=== PATIENT | female | born 1965 | race Caucasian/White ===

== ENCOUNTER 2020-11-05 10:45 | Emergency (ER) | payer SELFPAY ==
--- NOTE | 2020-11-05 12:07 | CT ---
EXAM DESCRIPTION: Abdoment/Pelvis w/o Contrast: Computed Tomography. CLINICAL HISTORY: 55 years Female left flank pain COMPARISON: None. TECHNIQUE: Spiral-axial scans 2.5 x 2.5 mm intervals through the abdomen and pelvis without oral or IV contrast. Coronal and sagittal 2.0 mm reconstructions. Total Exam DLP: 1443 mGy-cm. This exam was performed according to our departmental CT dose-optimization program which includes automated exposure control, adjustment of the mA and/or kV according to patient size and/or use of iterative reconstruction technique; to reduce radiation dose to as low as reasonably achievable (ALARA). FINDINGS: Lung bases and pleura: Negative. Liver, stomach, spleen, and adrenal glands: Radiodense food in the dependent portion of the stomach. Craniocaudal dimension of the right lobe of the liver is borderline enlarged. No ascites. Pancreas, Gallbladder, and Ducts: Surgical clips in the gallbladder fossa with no fluid. Pancreas and duct negative. Normal surrounding fat density. Kidneys and Ureters: Unremarkable. Mesentery: No free air or free fluid. Aorta: Negative. Small Bowel: Unremarkable. Terminal Ileum/Cecum: Normal caliber, including appendix. No inflammatory findings. Colon: Minimal fecal material in the proximal half with distal half decompressed. Pelvic Organs: Uterus not seen with vaginal cuff unremarkable. Possible calcification small right ovary. Left ovary not enlarged. No fluid in the cul-de-sac. Spine and Bony Pelvis: Minimal spondylosis lower thoracic spine. Also L5-S1 disc space. Hypertrophic changes of the superior lateral right acetabulum with over coverage of the right femoral neck and lateral cortical bump subcapital femoral neck. Abdominal Wall/Back Soft Tissues: Small bilateral fatty inguinal hernias not containing bowel. IMPRESSION: 1. No organomegaly, no inflammatory process, no free air or free fluid. Prior cholecystectomy. 2. The appendix is negative. Spondylosis thoracic and lumbar spine. Right acetabular hypertrophy with the subcapital region of the right femoral head and neck and right lateral subcortical femoral neck bump. These findings are associated with femoral acetabular impingement. 3. Small bilateral fatty inguinal hernias not containing bowel. Electronically signed by: Jim Stevens MD 11/05/2020 12:05 PM [facility]
[2020-11-05] MEDS ORDERED: CIPROFLOXACIN 500 MG TAB PO ONE (13:31)
[2020-11-05] MEDS ORDERED: TAMSULOSIN 0.4 MG CAP PO ONE (13:32)
--- NOTE | 2020-11-05 13:37 | ED.PDOC ---
History of Present Illness - General Chief Complaint: Problem Stated Complaint: left flank pain Time Seen by Provider: 11/05/20 11:07 Source: patient Exam Limitations: no limitations - History of Present Illness Initial Comments: The patient is a 55-year-old female presented emergency room secondary to left flank and abdominal pain that started around 6 AM this morning and was very severe. At its worst it did make her vomit. She did receive morphine with EMS. She has had some dysuria as well as the need to void but feeling like she cannot. Her pain is significantly better at this point. No fever. Onset of the pain was severe and abrupt. No further vomiting. No abdominal pain to palpation. No flank pain to palpation. Timing/Duration: 4-6 hours Severity: severe Improving Factors: medication Worsening Factors: nothing Associated Symptoms: loss of appetite, malaise, nausea/vomiting Allergies/Adverse Reactions: Allergies Bupropion [From Wellbutrin] Allergy (Verified 11/05/20 10:59) Escitalopram [From Lexapro] Allergy (Verified 11/05/20 10:59) Lisinopril Allergy (Verified 11/05/20 10:59) Home Medications: Ambulatory Orders Albuterol Sulfate Nebs [Proventil Nebs] 2.5 mg INH PRN 11/05/20 Aspirin [Aspirin Adult Low Dose] 81 mg PO DAILY 11/05/20 Buspirone HCl [Buspirone Hydrochloride] 5 mg PO BID 11/05/20 Calcium Carbonate-Vitamin D [Calcium 600+D 600-200 mg-Unit] 1 tab PO DAILY 11/05/20 Cetirizine HCl [Cetirizine Hydrochloride] 10 mg PO DAILY 11/05/20 Ciprofloxacin [Cipro] 500 mg PO BID #6 tab 11/05/20 Esomeprazole Magnesium 20 mg PO DAILY 11/05/20 Losartan Potassium [Cozaar] 25 mg PO DAILY 11/05/20 Metoprolol Tartrate 50 mg PO DAILY 11/05/20 Naproxen 500 mg PO BID PRN 11/05/20 Paroxetine HCl [Paroxetine Hydrochloride] 10 mg PO DAILY 11/05/20 Tamsulosin HCl [Flomax] 0.4 mg PO DAILY #7 cap 11/05/20 Topiramate [Topiramate ER] 200 mg PO BID 11/05/20 Review of Systems - Review of Systems Constitutional: States: no symptoms reported EENTM: States: no symptoms reported Respiratory: States: no symptoms reported Cardiology: States: no symptoms reported Gastrointestinal/Abdominal: States: abdominal pain, nausea, vomiting Genitourinary: States: no symptoms reported Musculoskeletal: States: back pain Skin: States: no symptoms reported Neurological: States: no symptoms reported Endocrine: States: no symptoms reported All other Systems: No Change from Baseline Past Medical History (General) - Patient Medical History Hx Stroke: Yes Hx Asthma: Yes Hx Congestive Heart Failure: No Hx Hypertension: Yes Hx Diabetes: No Hx Gastroesophageal Reflux: Yes Surgical History: cholecystectomy, tonsillectomy, Hysterectomy - Vaccination History Hx Influenza Vaccination: No Hx Pneumococcal Vaccination: No - Social History Hx Tobacco Use: No Family Medical History - Family History Father Family History: Unknown Living Status: Unknown Physical Exam - Physical Exam General Appearance: Alert, No apparent distress Eye Exam: bilateral normal Ears, Nose, Throat: hearing grossly normal, normal pharynx Neck: full range of motion, supple Respiratory: lungs clear, normal breath sounds, no respiratory distress, no accessory muscle use Cardiovascular/Chest: normal peripheral pulses, regular rate, rhythm, no edema Peripheral Pulses: radial,right: 2+, radial,left: 2+ Gastrointestinal/Abdominal: non tender, soft Rectal Exam: deferred Back Exam: no CVA tenderness, no vertebral tenderness Extremity: non-tender, normal inspection, no pedal edema, normal capillary refill 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 I believe the patient has already passed a small kidney stone. The patient is going to be placed on Flomax for the next week to help relax the ureter. She can also take Motrin or Aleve as needed. She is going to be placed on 3 days of ciprofloxacin to prevent any infection from setting in. Her urinalysis did not definitively show any urinary tract infection however cannot be definitively ruled out at this point. She is to keep her self well-hydrated. CT scan failed to show acute pathology otherwise. She does have however hypertrophic degenerative changes of the right hip joint. I do want her to follow-up with her primary care doctor for further evaluation of this as an outpatient. ER warnings are given. marquis cooper [phone] - Results/Orders Results/Orders: CT scan of abdomen pelvis without contrast shows no evidence of acute pathology. She does have chronic hypertrophic degenerative changes of the right hip. See report for details. Laboratory Results - last 24 hr 11/05/20 11/05/20 11/05/20 11:08 11:17 11:17 WBC 5.8 RBC 4.39 Hgb 13.1 Hct 39.6 MCV 90.2 MCH 29.8 MCHC 33.1 RDW 13.0 Plt Count 231 MPV 9.0 Absolute Neuts (auto) 3.50 Absolute Lymphs (auto) 1.70 Absolute Monos (auto) 0.40 Absolute Eos (auto) 0.20 Absolute Basos (auto) 0.00 Neutrophils % 60.8 Lymphocytes % 29.1 Monocytes % 6.1 Eosinophils % 3.3 Basophils % 0.7 PT 9.7 INR < 1.00 PTT (SP) 22.5 Sodium 142 Potassium 3.4 L Chloride 112 H Carbon Dioxide 22 Anion Gap 11.4 L BUN 15 Creatinine 1.19 BUN/Creatinine Ratio 12.6 Random Glucose 134 H Serum Osmolality 285.9 Lactic Acid Calcium 8.7 Magnesium 1.8 Total Bilirubin 0.5 AST 21 ALT 23 Alkaline Phosphatase 102 Creatine Kinase 39 CK-MB (CK-2) 0.9 CK-MB (CK-2) % Not Reportable Troponin I < 0.02 B-Natriuretic Peptide 58.5 Serum Total Protein 7.2 Albumin 3.6 Globulin 3.6 H Albumin/Globulin Ratio 1.0 L Amylase 44 Lipase 31 Serum HCG, Qual Urine Color Urine Appearance Urine pH Ur Specific [place] Urine Protein Urine Glucose (UA) Urine Ketones Urine Blood Urine Nitrite Urine Bilirubin Urine Urobilinogen Ur Leukocyte Esterase Urine RBC Urine WBC Ur Epithelial Cells Urine Bacteria 11/05/20 11/05/20 11/05/20 11:17 11:17 12:40 WBC RBC Hgb Hct MCV MCH MCHC RDW Plt Count MPV Absolute Neuts (auto) Absolute Lymphs (auto) Absolute Monos (auto) Absolute Eos (auto) Absolute Basos (auto) Neutrophils % Lymphocytes % Monocytes % Eosinophils % Basophils % PT INR PTT (SP) Sodium Potassium Chloride Carbon Dioxide Anion Gap BUN Creatinine BUN/Creatinine Ratio Random Glucose Serum Osmolality Lactic Acid 1.5 Calcium Magnesium Total Bilirubin AST ALT Alkaline Phosphatase Creatine Kinase CK-MB (CK-2) CK-MB (CK-2) % Troponin I B-Natriuretic Peptide Serum Total Protein Albumin Globulin Albumin/Globulin Ratio Amylase Lipase Serum HCG, Qual Negative Urine Color Yellow Urine Appearance Clear Urine pH 5.5 Ur Specific [place] 1.025 Urine Protein Negative Urine Glucose (UA) Negative Urine Ketones Negative Urine Blood Moderate H Urine Nitrite Negative Urine Bilirubin Negative Urine Urobilinogen 0.2 Ur Leukocyte Esterase Negative Urine RBC 5-10 H Urine WBC 0 Ur Epithelial Cells 5-10 Urine Bacteria 2+ H Departure - Departure Clinical Impression: Ureterolithiasis Disposition: Discharge to Home or Self Care Condition: Fair Departure Forms: ED Discharge - Pt. Copy, Patient Portal Self Enrollment Instructions: Renal Colic Diet: regular diet Activity: increase activity as tolerated Prescriptions: Ciprofloxacin [Cipro] 500 mg PO BID #6 tab Tamsulosin HCl [Flomax] 0.4 mg PO DAILY #7 cap Home Medications: Ambulatory Orders Albuterol Sulfate Nebs [Proventil Nebs] 2.5 mg INH PRN 11/05/20 Aspirin [Aspirin Adult Low Dose] 81 mg PO DAILY 11/05/20 Buspirone HCl [Buspirone Hydrochloride] 5 mg PO BID 11/05/20 Calcium Carbonate-Vitamin D [Calcium 600+D 600-200 mg-Unit] 1 tab PO DAILY 11/05/20 Cetirizine HCl [Cetirizine Hydrochloride] 10 mg PO DAILY 11/05/20 Ciprofloxacin [Cipro] 500 mg PO BID #6 tab 11/05/20 Esomeprazole Magnesium 20 mg PO DAILY 11/05/20 Losartan Potassium [Cozaar] 25 mg PO DAILY 11/05/20 Metoprolol Tartrate 50 mg PO DAILY 11/05/20 Naproxen 500 mg PO BID PRN 11/05/20 Paroxetine HCl [Paroxetine Hydrochloride] 10 mg PO DAILY 11/05/20 Tamsulosin HCl [Flomax] 0.4 mg PO DAILY #7 cap 11/05/20 Topiramate [Topiramate ER] 200 mg PO BID 11/05/20 Additional Instructions: The patient is a 55-year-old female presented emergency room secondary to acute onset left abdomen and flank pain. I believe the patient has already passed a small kidney stone. The patient is going to be placed on Flomax for the next week to help relax the ureter. She can also take Motrin or Aleve as needed. She is going to be placed on 3 days of ciprofloxacin to prevent any infection from setting in. Her urinalysis did not definitively show any urinary tract infection however cannot be definitively ruled out at this point. She is to keep her self well-hydrated. CT scan failed to show acute pathology otherwise. She does have however hypertrophic degenerative changes of the right hip joint. I do want her to follow-up with her primary care doctor for further evaluation of this as an outpatient. ER warnings are given.
[2020-11-05 14:51] VITALS: BP 123/62; TEMP 97.4; O2SAT 96
== END 2020-11-05 14:51 | disposition home or self-care (01) ==
LOC: ER 10:45
DX: N20.1 Calculus of ureter (principal); I10 Essential (primary) hypertension; K21.9 Gastro-esophageal reflux disease without esophagitis; J45.909 Unspecified asthma, uncomplicated; Z86.73 Personal history of transient ischemic attack (TIA), and cerebral infarction without residual deficits; Z79.899 Other long term (current) drug therapy; Z79.82 Long term (current) use of aspirin; Z88.8 Allergy status to other drugs, medicaments and biological substances